=== PATIENT | female | born 2000 | race Caucasian/White ===

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

== ENCOUNTER → 2022-07-19 | Outpatient (CLI) | payer BC | LOC: M CLY 10:27 | PROVIDERS: ATTEND Physician Assistant | DX: S69.91XD Unspecified injury of right wrist, hand and finger(s), subsequent encounter (principal); W23.0XXA Caught, crushed, jammed, or pinched between moving objects, initial encounter; Y92.9 Unspecified place or not applicable; Y93.9 Activity, unspecified; Y99.9 Unspecified external cause status ==

== ENCOUNTER → 2023-11-03 | Outpatient (REF) | payer BC, OTHER | LOC: M SFHCWAGY 17:06 | PROVIDERS: ATTEND Nurse Practitioner Family | DX: Z12.4 Encounter for screening for malignant neoplasm of cervix (principal); Z01.419 Encounter for gynecological examination (general) (routine) without abnormal findings; Z77.9 Other contact with and (suspected) exposures hazardous to health ==

== ENCOUNTER 2024-05-10 07:51 | Emergency (ER) | payer BC, OTHER ==
[~2024-05-10] VITALS: Ht 162.6 cm; Wt 66.1 kg
[2024-05-10] MEDS ORDERED: MUPI30CR TOP (11:23)
[2024-05-10 11:33] VITALS: BP 136/68; TEMP 98.5; O2SAT 98
== END 2024-05-10 11:36 | disposition home or self-care (01) ==
LOC: M ED 07:51
DX: L73.9 Follicular disorder, unspecified (principal)